=== PATIENT | female | born 1975 | race Caucasian/White ===

== ENCOUNTER 2016-11-04 19:38 | Observation (INO) | payer MEDICAID ==
[2016-11-04] MEDS ORDERED: ASPIRIN 325 MG TABLET PO ONE (19:48)
--- NOTE | 2016-11-04 19:54 | Emergency Department Record ---
History of Present Illness - General Chief Complaint: Chest Pain Stated Complaint: CHEST PAIN Time Seen by Provider: 11/04/16 19:48 Source: Patient Mode of Arrival: Ambulatory Limitations: No limitations - History of Present Illness Initial Comments: 41 yo female presents with left sided chest pain that is coming and going. The first episode occurred this morning. The pain is left sided, sharp, last a few seconds at a time. It is not related to exertion. No shortness of breath. No cough. No sweating. No travel or trips. No edema. No history or HTN, DM, Elevated cholesterol, PE or DVT. No family history of CAD or PE/DVT. She is not a smoker. No HRT or control. MD Complaint: Chest pain Onset/Timin -: Hour(s) Pain Location: Left chest Quality: Aching Consistency: Intermittent Improves With: Nothing Worsens With: Nothing Other Symptoms: Burping Treatments Prior to Arrival: None - Related Data Home Medications Medication Instructions Recorded Confirmed Last Taken Tizanidine HCl [Zanaflex] 4 mg PO ASDIR PRN cap 06/13/15 11/04/16 Unknown Sumatriptan Succinate [Imitrex] 100 mg PO ASDIR PRN 03/02/16 11/04/16 Unknown Bupropion HCl [Wellbutrin Xl] 150 mg PO DAILY 11/04/16 11/04/16 Unknown Allergies Allergy/AdvReac Type Severity Reaction Status Date / Time No Known Drug Allergies Allergy Verified 03/02/16 19:24 Travel Screening - Travel/Exposure Within Last 30 Days Have you traveled within the last 30 days?: No Review of Systems Constitutional: Denies: Chills, Fever, Malaise, Weakness Eyes: Denies: Eye discharge, Eye pain, Photophobia ENT: Denies: Congestion, Throat pain Respiratory: Denies: Cough, Dyspnea, Hemoptysis, Stridor, Wheezes Cardiovascular: Reports: Chest pain. Denies: Arrhythmia, Dyspnea on exertion, Edema, Palpitations, Syncope Endocrine: Denies: Fatigue, Polydipsia, Polyuria Gastrointestinal: Denies: Abdominal pain, Diarrhea, Nausea, Vomiting Genitourinary: Denies: Dysuria, Urgency Musculoskeletal: Denies: Arthralgia, Back pain, Joint swelling, Myalgia, Neck pain Skin: Denies: Bruising, Change in color, Rash Neurological: Denies: Confusion, Headache, Numbness, Paresthesias, Tingling, Tremors, Vertigo, Weakness Psychiatric: Denies: Anxiety Hematological/Lymphatic: Denies: Anemia, Blood Clots, Easy bleeding, Easy bruising, Swollen glands Past Medical History - SOCIAL HISTORY Smoking Status: Never smoker Alcohol Use: None Drug Use: None - RESPIRATORY Hx Respiratory Disorders: No - CARDIOVASCULAR Hx Cardio Disorders: No - NEURO Hx Neuro Disorders: No - GI Hx GI Disorders: Yes Hx Crohn's Disease: Yes Hx Reflux: Yes Comment:: Barretts esophagus - Hx Genitourinary Disorders: No - ENDOCRINE Hx Endocrine Disorders: Yes Hx Diabetes: No Hx Thyroid Disease: Yes (hypo) - MUSCULOSKELETAL Hx Musculoskeletal Disorders: No - PSYCH Hx Psych Problems: No - HEMATOLOGY/ONCOLOGY Hx Hematology/Oncology Disorders: No Family Medical History Any Significant Family History?: No Physical Exam - General General Appearance: Alert, Oriented x3, Cooperative, No acute distress Limitations: No limitations - Head Head exam: Atraumatic, Normocephalic, Normal inspection - Eye Eye exam: Normal appearance, PERRL. negative: Conjunctival injection, Periorbital swelling - ENT ENT exam: Normal exam, Mucous membranes moist, Normal external ear exam, Normal orophraynx, TM's normal bilaterally Ear exam: Normal external inspection. negative: External canal tenderness Nasal Exam: Normal inspection. negative: Discharge, Sinus tenderness Mouth exam: Normal external inspection, Tongue normal Teeth exam: Normal inspection. negative: Dental caries Throat exam: Normal inspection. negative: Tonsillar erythema, Tonsillar exudate - Neck Neck exam: Normal inspection, Full ROM. negative: Tenderness - Respiratory Respiratory exam: Normal lung sounds bilaterally. negative: Accessory muscle use, Chest wall tenderness, Decreased breath sounds, Prolonged expiratory, Rales , Respiratory distress, Rhonchi, Stridor, Wheezes - Cardiovascular Cardiovascular Exam: Regular rate, Normal rhythm, Normal heart sounds Peripheral Pulses: 2+: Radial (R), Radial (L), Dorsalis Pedis (R), Dorsalis Pedis (L) - GI/Abdominal GI/Abdominal exam: Soft. negative: Tenderness - Rectal Rectal exam: Deferred - exam: Deferred - Extremities Extremities exam: Normal inspection, Full ROM, Normal capillary refill. negative: Calf tenderness, Joint swelling, Pedal edema, Tenderness - Back Back exam: Reports: Normal inspection, Full ROM. Denies: Muscle spasm, Rash noted, Tenderness - Neurological Neurological exam: Alert, Normal gait, Oriented X3, Reflexes normal - Psychiatric Psychiatric exam: Normal affect, Normal mood - Skin Skin exam: Dry, Intact, Normal color, Warm Course Vital Signs 11/04/16 19:46 Temperature 98.6 F Pulse Rate [ 78 Pulse Ox Probe] Respiratory 20 Rate Blood Pressure 172/114 [Left Arm] Pulse Ox 99 - Reevaluation(s) Reevaluation #1: The troponin was negative The D-dimer was elevated at 0.7 A CTA of the chest was completed. No acute PE or acute process The pain is atypical but comes and goes so I recommend over night observation with serial enzymes and cardiology consultation 11/04/16 21:39 Procedures - EKG Initial Date: 11/04/16 Time: 19:53 EKG: No Acute Changes, Normal EKG EKG Detail: NSR rate 76, intervals normal, ST normal Medical Decision Making - Lab Data Result diagrams: 11/04/16 19:50 11/04/16 19:50 Disposition Disposition: Admit Clinical Impression: Chest pain Qualifiers: Chest pain type: unspecified Qualified Code(s): R07.9 - Chest pain, unspecified Disposition: Still a Patient at [facility] Decision to Admit: Admit from ER Decision to Admit Date: 11/04/16 Decision to Admit Time: 21:41 Condition: (1) Good Forms: Patient Portal Access Time of Disposition: 21:41
[2016-11-04 19:59] LABS: BASO % 0.4 % (0-6); EOS % 1.3 % (0-6); HEMATOCRIT 42.9 % (35.0-47.0); HEMOGLOBIN 14.2 gm/dl (11.6-16.0); LYMPH % 37.3 % (16-45); MEAN CELL VOLUME 93.3 fl (81-97); MEAN CORPUSCULAR HEMOGLOBIN 30.9 pg (27-33); MEAN CORPUSCULAR HGB CONC 33.1 g/dl (32-36); MEAN PLATELET VOLUME 12.2 fl (7.4-10.4); PLATELET COUNT 190 K/uL (130-400); RED CELL DISTRIBUTION WIDTH 12.8 % (11.5-14.5); WHITE BLOOD COUNT W/O DIFF 7.8 K/uL (4.2-12.2)
[2016-11-04 20:20] LABS: INR 0.95; PROTHROMBIN TIME (PATIENT) 10.7 SECONDS (9.5-12.1)
[2016-11-04 20:23] LABS: D-DIMER 0.71 mg/L FEU (0-0.59)
[2016-11-04 20:49] LABS: ALB/GLOB RATIO 1.5 (1.1-1.8); ALBUMIN 4.5 gm/dL (3.5-5.0); ALKALINE PHOSPHATASE 79 U/L (38-126); ALT/SGPT 21 U/L (9-52); AST/SGOT 21 U/L (14-36); BILIRUBIN,TOTAL 0.62 mg/dL (0.2-1.3); BLOOD UREA NITROGEN 7 mg/dL (7-17); CREATINE PHOSPHOKINASE 39 U/L (30-135); CREATININE 0.9 mg/dL (0.52-1.04); EST GLOMERULAR FILTRATION RATE > 60 ml/min; GLUCOSE,RANDOM 109 mg/dL (70-110); TOTAL PROTEIN 7.6 gm/dL (6.3-8.2)
[2016-11-04 21:02] LABS: CKMB < 1.0 ng/mL (0-4.3); TROPONIN I < 0.012 ng/mL (0.00-0.034)
[2016-11-04] MEDS ORDERED: ACETAMINOPHEN 500 MG TABLET PO PRN (23:09)
--- NOTE | 2016-11-05 07:27 | CT ANGIOGRAM REPORT ---
EXAM: CTA OF THE CHEST HISTORY: ACUTE PLEURITIC LEFT CHEST PAIN, TACHYCARDIA. TECHNIQUE: Contiguous axial images from the thoracic inlet to the upper abdomen were obtained after the uneventful intravenous administration of 85 ml of Omnipaque 350. Sagittal and coronal two dimensional MIP as well as 3D/MIP reformatted images were obtained for better anatomic delineation. Comparison: Chest x-ray 07/14/13. FINDINGS: The lungs are clear. The central airways are patent. No pleural effusion. The heart is not enlarged and there is no pericardial effusion. No coronary artery calcification. No enlarged lymph nodes in the thorax. No evidence of thoracic aortic aneurysm or dissection. The pulmonary arteries are well opacified. No filling defect to suggest pulmonary embolism. The upper abdomen is unremarkable. No lytic or blastic lesion. IMPRESSION: NO ACUTE INTRATHORACIC PROCESS WITH NO PE OR THORACIC AORTIC DISSECTION. JOB NUMBER: [id number] MTDD
[2016-11-05] MEDS ORDERED: ASPIRIN 325 MG TAB ENTERIC-COATED PO SCH (10:00)
--- NOTE | 2016-11-05 11:25 | History & Physical ---
History of Present Illness - Date of Service Date of Service for History & Physical: 11/05/16 - History of Present Illness Admitting Diagnosis: chest pain History of Present Illness: 41 y/o female admitted for chest pain. PMX: Callaway's esophagus (last EGD 1 year ago), hypothyroidism, Crohn's Disease PSX: none Prior to arrival had 12 hours history of intermittent left chest pressure, burning radiating to left neck and burping. [place] like her heart beat was "going diagonal" and could feel it in her diaphragm. Took 8-9 tums over the course of the day with no relief of chest pain/burning. Denies diaphoresis, dizziness, syncope. Does report she has hx Callaway's esophagus, is not currently taking a PPI or H-2 harmony. Admits to a lot of stress in her life. No previous hx of similar symptoms or hospitalizations. No family hx CAD or HTN. Does not take control, does not smoke In the ED the first set of cardiac enzymes were normal, D-Dimer slightly elevated at 0.71, subsequent CTA chest negative for PE. CBC/CMP unremarkable, BP elevated at 172/114. EKG NSR. Admitted for cardiology consult, cardiac enzyme series r/o [place]. 11/05/16- resting in bed comfortably, does complain of left upper chest discomfort with palpation. Denies any recent trauma, fall, URI or cough. 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 Upon discussing potential triggers, such as stress , she became very tearful, withdrawn. Was not willing to discuss. Denied feeling unsafe at home. Denies any further complaint/concern. Tele remains NSR. Awaiting cardiology consult PCP: Dr Telly Esparza [employer] Dr. Rodgers Travel Screening - Travel/Exposure Within Last 30 Days Have you traveled within the last 30 days?: No - Travel/Exposure Within Last Year Have you traveled outside the [place] in the last year?: No - Additonal Travel Details Have you been exposed to anyone with a communicable illness?: No - Travel Symptoms Symptom Screening: None Review of Systems Constitutional: Denies: Chills, Fever, Malaise, Weakness Eyes: Denies: Eye discharge, Eye pain, Photophobia ENT: Denies: Congestion, Throat pain Respiratory: Denies: Cough, Dyspnea, Hemoptysis, Stridor, Wheezes Cardiovascular: Reports: Chest pain. Denies: Arrhythmia, Dyspnea on exertion, Edema, Palpitations, Syncope Endocrine: Denies: Fatigue, Polydipsia, Polyuria Gastrointestinal: Denies: Abdominal pain, Diarrhea, Nausea, Vomiting Genitourinary: Denies: Dysuria, Urgency Musculoskeletal: Denies: Arthralgia, Back pain, Joint swelling, Myalgia, Neck pain Skin: Denies: Bruising, Change in color, Rash Neurological: Denies: Confusion, Headache, Numbness, Paresthesias, Tingling, Tremors, Vertigo, Weakness Psychiatric: Denies: Anxiety Hematological/Lymphatic: Denies: Anemia, Blood Clots, Easy bleeding, Easy bruising, Swollen glands Past Medical History - SOCIAL HISTORY Smoking Status: Never smoker Alcohol Use: Occassional Drug Use: None - RESPIRATORY Hx Respiratory Disorders: No - CARDIOVASCULAR Hx Cardio Disorders: No - NEURO Hx Neuro Disorders: No - GI Hx GI Disorders: Yes Hx Crohn's Disease: Yes (?) Hx Reflux: Yes Comment:: Barretts esophagus? - Hx Genitourinary Disorders: No - ENDOCRINE Hx Endocrine Disorders: Yes Hx Diabetes: No Hx Thyroid Disease: Yes (hypo) - MUSCULOSKELETAL Hx Musculoskeletal Disorders: No - PSYCH Hx Psych Problems: No - HEMATOLOGY/ONCOLOGY Hx Hematology/Oncology Disorders: No Family Medical History Any Significant Family History?: No H&P Meds/Allergies - Allergies Allergies: Allergies Allergy/AdvReac Type Severity Reaction Status Date / Time No Known Drug Allergies Allergy Verified 03/02/16 19:24 - Home Medications Home Medications Medication Instructions Recorded Confirmed Last Taken Tizanidine HCl [Zanaflex] 4 mg PO BID PRN cap 06/13/15 11/05/16 Unknown Sumatriptan Succinate [Imitrex] 100 mg PO ASDIR PRN 03/02/16 11/04/16 Unknown Bupropion HCl [Wellbutrin Xl] 150 mg PO DAILY 11/04/16 11/04/16 Unknown - Active Medications Active Medications: Current Medications Acetaminophen (Tylenol 500mg Tab) 500 mg PO Q6H PRN PRN Reason: HEADACHE Last Admin: 11/04/16 23:15 Dose: 500 mg Aspirin (Ecotrin (Ec)) 325 mg PO DAILY [place] Last Admin: 05/23/17 09:29 Dose: 325 mg Physical Exam - Vital Signs Vital Signs: Vital Signs - Last 24 Hrs Temp Pulse Resp BP Pulse Ox 11/05/16 08:00 98.5 F 72 16 132/77 97 11/05/16 04:35 98.0 F 63 18 119/70 96 11/05/16 00:35 97.6 F 65 18 125/73 98 11/04/16 22:35 98.4 F 67 18 126/78 97 - General General Appearance: Alert, Oriented x3, Cooperative, No acute distress Limitations: No limitations - Head Head exam: Atraumatic, Normocephalic, Normal inspection - Eye Eye exam: Normal appearance, PERRL. negative: Conjunctival injection, Periorbital swelling - ENT ENT exam: Normal exam, Mucous membranes moist, Normal external ear exam, Normal orophraynx, TM's normal bilaterally Ear exam: Normal external inspection. negative: External canal tenderness Nasal Exam: Normal inspection. negative: Discharge, Sinus tenderness Mouth exam: Normal external inspection, Tongue normal Teeth exam: Normal inspection. negative: Dental caries Throat exam: Normal inspection. negative: Tonsillar erythema, Tonsillar exudate - Neck Neck exam: Normal inspection, Full ROM. negative: Tenderness - Respiratory Respiratory exam: Normal lung sounds bilaterally. negative: Accessory muscle use, Chest wall tenderness, Decreased breath sounds, Prolonged expiratory, Rales , Respiratory distress, Rhonchi, Stridor, Wheezes - Cardiovascular Cardiovascular Exam: Regular rate, Normal rhythm, Normal heart sounds, Other ( tenderness upon palpation left upper chest, left sternal border. Not reproducible with cough) Peripheral Pulses: 2+: Radial (R), Radial (L), Dorsalis Pedis (R), Dorsalis Pedis (L) - GI/Abdominal GI/Abdominal exam: Soft. negative: Tenderness - Rectal Rectal exam: Deferred - exam: Deferred - Extremities Extremities exam: Normal inspection, Full ROM, Normal capillary refill. negative: Calf tenderness, Joint swelling, Pedal edema, Tenderness - Back Back exam: Reports: Normal inspection, Full ROM. Denies: Muscle spasm, Rash noted, Tenderness - Neurological Neurological exam: Alert, Normal gait, Oriented X3, Reflexes normal - Psychiatric Psychiatric exam: Normal affect, Normal mood - Skin Skin exam: Dry, Intact, Normal color, Warm Results - Labs Result Diagrams: 11/04/16 19:50 11/04/16 19:50 Labs Last 24 Hours: Laboratory Results - last 24 hr 11/05/16 11/05/16 04:00 04:00 CK-MB (CK-2) < 1.0 Troponin I < 0.012 VTE H&P Assessment - Risk for VTE Risk for VTE: Yes Risk Level: Low Risk Assessment Date: 11/05/16 Risk Assessment Time: 11:31 VTE Orders Placed or Will Be Placed: Yes AMI H&P Plan - EKG Initial Date: 11/04/16 Time: 19:53 EKG: No Acute Changes, Normal EKG EKG Detail: NSR rate 76, intervals normal, ST normal Plan - Detailed Diagnosis and Plan (1) Chest pain Current Visit: Yes Status: Acute Qualifiers: Chest pain type: unspecified Qualified Code(s): R07.9 - Chest pain, unspecified Base Code: R07.9 - CHEST PAIN, UNSPECIFIED Comment: 11/05/16- 41 y/o admitted for 12 hour hx chest pain, burning, burping unrelieved by Tums. No previous cardiac hx, no family hx CAD, HTN. Cardiac enzymes x 3 (first 2 sets normal), D -dimer in ED slightly elevated , CTA chest negative for PE. No smoker, no oral /control. BP in ED elevated now down < 140/90 since transfer to the floor. Hx of Callaway's esophagus with not current PPI or H-2 harmony with addition of reported increase in stress at home probable etiology of chest pain - await cardiology consult - continue Tele (has remained NSR) - ASA 325mg QD - if cleared by cardiology and last set of cardiac enzymes negative may discharge home - recommend continue protonix at home - follow up GI as outpatient - follow up PCP 1-2 weeks - consider behavior health for stress management (2) DVT prophylaxis Current Visit: Yes Status: Acute Base Code: [id number] - Comment: 11/05/16- low risk, non-smoker, no OBC, on ASA 325mg, nursing to encourage frequent ambulation (3) Full code status Current Visit: Yes Status: Acute Base Code: Z78.9 - OTHER SPECIFIED HEALTH STATUS Comment: 11/05/16-will remain full code during this hospitalization
[2016-11-05] MEDS ORDERED: PANTOPRAZOLE SODIUM 40 MG TABLET PO SCH (11:30)
--- NOTE | 2016-11-05 18:23 | Discharge Summary ---
Providers Discharge Summary Date: 11/05/16 Date of admission: 11/04/16 22:13 Expected Date of Discharge: 11/05/16 Attending physician: KERA CORRAL Primary care physician: MAR YALICE SON D.O. Physical Exam - Vital Signs Vital Signs: Vital Signs - Last 24 Hrs Temp Pulse Resp BP Pulse Ox 11/05/16 16:00 98.7 F 65 16 130/80 95 11/05/16 12:00 99.0 F 64 16 112/69 96 11/05/16 09:00 72 16 11/05/16 08:00 98.5 F 72 16 132/77 97 11/05/16 04:35 98.0 F 63 18 119/70 96 11/05/16 00:35 97.6 F 65 18 125/73 98 11/04/16 22:35 98.4 F 67 18 126/78 97 - General General Appearance: Alert, Oriented x3, Cooperative, No acute distress Limitations: No limitations - Head Head exam: Atraumatic, Normocephalic, Normal inspection - Eye Eye exam: Normal appearance, PERRL. negative: Conjunctival injection, Periorbital swelling - ENT ENT exam: Normal exam, Mucous membranes moist, Normal external ear exam, Normal orophraynx, TM's normal bilaterally Ear exam: Normal external inspection. negative: External canal tenderness Nasal Exam: Normal inspection. negative: Discharge, Sinus tenderness Mouth exam: Normal external inspection, Tongue normal Teeth exam: Normal inspection. negative: Dental caries Throat exam: Normal inspection. negative: Tonsillar erythema, Tonsillar exudate - Neck Neck exam: Normal inspection, Full ROM. negative: Tenderness - Respiratory Respiratory exam: Normal lung sounds bilaterally. negative: Accessory muscle use, Chest wall tenderness, Decreased breath sounds, Prolonged expiratory, Rales , Respiratory distress, Rhonchi, Stridor, Wheezes - Cardiovascular Cardiovascular Exam: Regular rate, Normal rhythm, Normal heart sounds, Other ( tenderness upon palpation left upper chest, left sternal border. Not reproducible with cough) Peripheral Pulses: 2+: Radial (R), Radial (L), Dorsalis Pedis (R), Dorsalis Pedis (L) - GI/Abdominal GI/Abdominal exam: Soft. negative: Tenderness - Rectal Rectal exam: Deferred - exam: Deferred - Extremities Extremities exam: Normal inspection, Full ROM, Normal capillary refill. negative: Calf tenderness, Joint swelling, Pedal edema, Tenderness - Back Back exam: Reports: Normal inspection, Full ROM. Denies: Muscle spasm, Rash noted, Tenderness - Neurological Neurological exam: Alert, Normal gait, Oriented X3, Reflexes normal - Psychiatric Psychiatric exam: Normal affect, Normal mood - Skin Skin exam: Dry, Intact, Normal color, Warm Hospitalization - Hospitalization Admission Diagnosis: chest pain - Problem List/Discharge Diagnosis (1) Chest pain Current Visit: Yes Status: Acute Discharge Diagnosis: Chest pain type: unspecified Qualified Code(s): R07.9 - Chest pain, unspecified Base Code: R07.9 - CHEST PAIN, UNSPECIFIED Comment: 11/05/16- 41 y/o admitted for 12 hour hx chest pain, burning, burping unrelieved by Tums. No previous cardiac hx, no family hx CAD, HTN. Cardiac enzymes x 3 (first 2 sets normal), D -dimer in ED slightly elevated , CTA chest negative for PE. No smoker, no oral /control. BP in ED elevated now down < 140/90 since transfer to the floor. Hx of Callaway's esophagus with not current PPI or H-2 harmony with addition of reported increase in stress at home probable etiology of chest pain - Cleared by cardiology, Dr Mik Rodgers, for discharge, no further testing required. Advised to make appt with him should her symptoms return - cardiac enzymes x 3 negative - recommend continue protonix at home - follow up GI as outpatient - follow up PCP 1-2 weeks - consider behavior health for stress management (2) DVT prophylaxis Current Visit: Yes Status: Acute Base Code: [id number] - Comment: 11/05/16- low risk, non-smoker, no OBC, on ASA 325mg, nursing to encourage frequent ambulation (3) Full code status Current Visit: Yes Status: Acute Base Code: Z78.9 - OTHER SPECIFIED HEALTH STATUS Comment: 11/05/16-will remain full code during this hospitalization - Hospitalization Course Disposition: Home, Self-Care Hospital Course: 1 y/o female admitted for chest pain. PMX: Callaway's esophagus (last EGD 1 year ago), hypothyroidism, Crohn's Disease PSX: none Prior to arrival had 12 hours history of intermittent left chest pressure, burning radiating to left neck and burping. [place] like her heart beat was "going diagonal" and could feel it in her diaphragm. Took 8-9 tums over the course of the day with no relief of chest pain/burning. Denies diaphoresis, dizziness, syncope. Does report she has hx Callaway's esophagus, is not currently taking a PPI or H-2 harmony. Admits to a lot of stress in her life. No previous hx of similar symptoms or hospitalizations. No family hx CAD or HTN. Does not take control, does not smoke In the ED the first set of cardiac enzymes were normal, D-Dimer slightly elevated at 0.71, subsequent CTA chest negative for PE. CBC/CMP unremarkable, BP elevated at 172/114. EKG NSR. Admitted for cardiology consult, cardiac enzyme series r/o [place]. 11/05/16- resting in bed comfortably, does complain of left upper chest discomfort with palpation. Denies any recent trauma, fall, URI or cough. 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 Upon discussing potential triggers, such as stress , she became very tearful, withdrawn. Was not willing to discuss. Denied feeling unsafe at home. Denies any further complaint/concern. Tele remains NSR. Awaiting cardiology consult PCP: Dr Telly Son Tar Chaser Dr. Rodgers Condition at Discharge: (1) Good Discharge Medications - Discharge Medications Prescriptions: Pantoprazole Sodium [Protonix] 40 mg PO NOW #30 tab Home Medications: Ambulatory Orders Tizanidine HCl [Zanaflex] 4 mg PO BID PRN cap 06/13/15 [Last Taken Unknown] Sumatriptan Succinate [Imitrex] 100 mg PO ASDIR PRN 03/02/16 [Last Taken Unknown ] Bupropion HCl [Wellbutrin Xl] 150 mg PO DAILY 11/04/16 [Last Taken Unknown] Pantoprazole Sodium [Protonix] 40 mg PO NOW #30 tab 11/05/16 [Last Taken Unknown ] Discharge Plan - Discharge Instructions Activity at Discharge: Increase Activity as Tolerated Diet at Discharge: Advance to Usual Diet Additional Instructions: follow up PCP 1-2 weeks follow up with skid worker 1-2 weeks continue Protonix until follow up with skid worker
--- NOTE | 2016-11-06 16:01 | Medical Records Consult ---
DATE OF CONSULTATION: 11/05/2016. REASON FOR CONSULTATION: Chest pain. REFERRING PHYSICIAN: Sarbjit Simental MD. HISTORY OF PRESENT ILLNESS: The patient, who is a healthy young lady and is a medical office coordinator at [employer], presented with complaints of left-sided chest pain that started while she was at work. The patient described the chest pain as episodic, about 3-4/10 in severity, and was lasting about 30-45 second intervals, and was on and off. It had no relationship with exertion, was not associated with shortness of breath, palpitations, or diaphoresis. The patient got concerned and came to the emergency department. She does complain of a sore spot and a reproducible area. ALLERGIES: No known drug allergies. HOME MEDICATIONS: 1. Zanaflex 4 mg p.o. p.r.n. 2. Wellbutrin 150 mg p.o. daily. 3. Imitrex 100 mg p.o. p.r.n. FAMILY HISTORY: Patient does not know about her family history. SOCIAL HISTORY: Patient is . Lives with her . Has 3 kids. She is fairly active, however, does not have any structured exercise program, and no history of cigarette smoking or illicit drug use. REVIEW OF SYSTEMS: Patient denies any fevers or chills. She did have a pneumonia about 2 months ago, for which she used 3 different courses of antibiotics. She denies any bleeding disorders. PHYSICAL EXAMINATION: VITAL SIGNS: Temperature 98.6 degrees Fahrenheit. Pulse rate 78 beats per minute. Respiratory rate 20. Blood pressure 117/70 mmHg. GENERAL: The patient is a 41-year-old female sitting up in bed, not in any apparent distress. Alert, oriented x 3. HEENT: Normocephalic, atraumatic. Pupils are equal, round, reactive to light. Extraocular muscles are intact. NECK: Supple. CARDIOVASCULAR: Normal S1 and S2. There is no JVD. No pedal edema. RESPIRATORY: Lungs are clear to auscultation bilaterally. ABDOMEN: Soft and nontender. NEUROLOGIC: Nonfocal. LABORATORY DATA: Shows her cardiac biomarkers to be within normal limits. Her white count is 7.8, hemoglobin 14.2, hematocrit 42.9, platelet count 190. Sodium is 138, potassium 3.7, chloride 102, CO2 27, BUN 7, creatinine 0.9, blood glucose 109. The patient's ECG shows a sinus rhythm with normal axis, a rate of 61 beats per minute, OK interval of 166 msec, QRS duration of 100 msec, and QTc of 443 msec. IMPRESSION: Chest pain. The patient has musculoskeletal chest pain. The EKG and cardiac biomarkers are within normal limits, and her symptoms are fairly characteristic for musculoskeletal pain, as it is reproducible and has no relationship with exertion. The patient does not have any significant risk factors for cardiovascular disease either. I would not recommend doing any further cardiac workup at this point in time, and she may be discharged home. If she continues to have the pain or the pain gets worse, then she make a followup appointment with us as outpatient for further evaluation. Reassurance was provided. Thank you very much. Clarita Rodgers MD MTDDavid
== END 2016-11-05 18:40 | disposition home or self-care (01) ==
LOC: ER 19:38 → MEDSURG 22:13
PROVIDERS: ADMIT Family Medicine; ATTEND Family Medicine
DX: R07.9 Chest pain, unspecified (principal); E03.9 Hypothyroidism, unspecified; K50.90 Crohn's disease, unspecified, without complications; K22.70 Barrett's esophagus without dysplasia; Z78.9 Other specified health status
CPT/HCPCS: 93041; 99285 ×2; 82550; 85025; 85730; 85610; 82553 ×2; 84484 ×2; 80053; 81025; 85379; 71275; 93005 ×2; 93010; G0378 ×2; Q9967; 99220

== ENCOUNTER 2017-09-01 19:13 | Emergency (ER) | payer BC, MEDICAID ==
[2017-09-01] MEDS ORDERED: 0.9 % SODIUM CHLORIDE 1,000 ML BAG IV ONE (19:40)
--- NOTE | 2017-09-01 19:41 | Emergency Department Record ---
History of Present Illness - General Chief Complaint: Wheezing Stated Complaint: WHEEZING,SHERWOOD WHILE BREATHING,HAND NUMBNESS Time Seen by Provider: 09/01/17 19:26 Source: Patient Mode of Arrival: Ambulatory Limitations: No limitations - History of Present Illness Initial Comments: 41 yo male presents with multiple concerns. She has felt fatigue and tired since last . She feels like she has no energy. She feels lightheaded and dizzy at times. She felt like she was wheezing this weekend. She has had a dry cough. No fevers or chills. No rash. No edema. No nausea, vomiting, diarrhea, or chest pain. No swollen glands. She has MS. She saw her neurologist last Friday and felt normal. No new medications were added or stopped. No syncope. No headaches. Her PCP is Dr Simons in [place]. Her neurologist is Dr Rocha in [place]. She had some mild new changes on her MRI in June compared to the previous. She has had MS symptoms for 6 years. She has had chronic numbness and tingling and periodic weakness. No current double vision. This has occurred in the past. MD Complaint: Shortness of breath -: Days(s) Severity: Mild Context: None known Associated Symptoms: Dry cough - Related Data Current Asthma Therapy: None Home Medications Medication Instructions Recorded Confirmed Last Taken Escitalopram Oxalate [Lexapro] 20 mg PO DAILY 09/01/17 09/01/17 Unknown Pregabalin [Lyrica] 75 mg PO BID 09/01/17 09/01/17 Unknown Topiramate 25Mg Tablet [Topiramate] 25 mg PO DAILY 09/01/17 09/01/17 Unknown Previous Rx's Medication Instructions Recorded Pantoprazole Sodium [Protonix] 40 mg PO NOW #30 tab 11/05/16 Allergies Allergy/AdvReac Type Severity Reaction Status Date / Time No Known Drug Allergies Allergy Verified 03/02/16 19:24 Review of Systems Constitutional: Reports: Malaise, Weakness (generalized). Denies: Chills, Fever Eyes: Reports: Other (transient blurry last week, resovled then). Denies: Eye discharge, Eye pain, Photophobia, Vision change ENT: Denies: Congestion, Throat pain Respiratory: Reports: Cough, Dyspnea, Wheezes. Denies: Hemoptysis, Stridor Cardiovascular: Denies: Arrhythmia, Chest pain, Dyspnea on exertion, Edema, Palpitations, Syncope Endocrine: Denies: Fatigue Gastrointestinal: Denies: Abdominal pain, Constipation, Diarrhea, Hematochezia, Melena, Nausea, Vomiting Genitourinary: Denies: Dysuria, Frequency, Hematuria, Urgency Musculoskeletal: Denies: Arthralgia, Back pain, Joint swelling, Myalgia Skin: Denies: Bruising, Change in color, Rash Neurological: Reports: Numbness (chronic unchanged), Paresthesias (chronic unchanged), Tingling (chronic), Vertigo, Weakness, Other (trouble concentrating at times). Denies: Abnormal gait, Confusion, Headache, Seizure, Tremors Psychiatric: Reports: Anxiety Hematological/Lymphatic: Denies: Blood Clots, Easy bleeding, Easy bruising, Swollen glands Past Medical History - SOCIAL HISTORY Smoking Status: Never smoker Drug Use: None - RESPIRATORY Hx Respiratory Disorders: No - CARDIOVASCULAR Hx Cardio Disorders: No - NEURO Hx Neuro Disorders: No - GI Hx GI Disorders: Yes Hx Crohn's Disease: Yes (?) Hx Reflux: Yes Comment:: Barretts esophagus? - Hx Genitourinary Disorders: No - ENDOCRINE Hx Endocrine Disorders: Yes Hx Diabetes: No Hx Thyroid Disease: Yes (hypo) - MUSCULOSKELETAL Hx Musculoskeletal Disorders: No - PSYCH Hx Psych Problems: No - HEMATOLOGY/ONCOLOGY Hx Hematology/Oncology Disorders: No Physical Exam - General General Appearance: Alert, Oriented x3, Cooperative, No acute distress, Other ( Well appearing, no distress) Limitations: No limitations - Head Head exam: Normal inspection - Eye Eye exam: Normal appearance, PERRL, EOMI. negative: Conjunctival injection, Nystagmus, Periorbital swelling, Scleral icterus - ENT ENT exam: Normal exam, Mucous membranes moist, Normal orophraynx. negative: Mucous membranes dry Ear exam: Normal external inspection Nasal Exam: Normal inspection Mouth exam: Normal external inspection Teeth exam: Normal inspection Throat exam: Normal inspection - Neck Neck exam: Normal inspection, Full ROM. negative: Lymphadenopathy, Tenderness, Thyromegaly - Respiratory Respiratory exam: Normal lung sounds bilaterally. negative: Accessory muscle use, Chest wall tenderness, Decreased breath sounds, Prolonged expiratory, Rales , Respiratory distress, Rhonchi, Stridor, Wheezes - Cardiovascular Cardiovascular Exam: Regular rate, Normal rhythm, Normal heart sounds Peripheral Pulses: 2+: Radial (R), Radial (L) - GI/Abdominal GI/Abdominal exam: Soft. negative: Guarding, Rebound, Tenderness - Rectal Rectal exam: Deferred - exam: Deferred - Extremities Extremities exam: Normal inspection, Full ROM, Normal capillary refill. negative: Calf tenderness, Pedal edema, Tenderness - Back Back exam: Reports: Normal inspection. Denies: CVA tenderness (R), CVA tenderness (L) - Neurological Neurological exam: Alert, CN II-XII intact, Normal gait, Oriented X3, Other ( steady gait, unassisted, no double vision in all quadrants). negative: Abnormal gait, Altered, Motor sensory deficit - Psychiatric Psychiatric exam: Anxious (mild, becomes tearful). negative: Agitated - Skin Skin exam: Dry, Intact, Normal color, Warm. negative: Abrasion, Cyanosis, Diaphoretic, Erythema, Mottled, Pallor, Petechiae, Rash, Urticaria, Vesicles Course - Reevaluation(s) Reevaluation #1: The vitals were reviewed No acute changes. No hypoxia. No tachycardia 09/01/17 19:49 09/01/17 20:02 EKG NSR rate 62, intervals normal, axis normal, ST normal, No changes from the prior 11/05/16 09/01/17 20:03 Orthostatic vitals reviewed. No acute changes. 09/01/17 20:31 No acute changes on the CBC or CMP The magnesium is normal The UCG is negative The US with concentration, trace LE, few bacteria, but with epithelial and no WBC. Consistent with contamination. 09/01/17 20:34 The CXR was reviewed by me. No acute process. Normal heart size and clear lung rojas. I discussed the results with the patient. She has several symptoms with very reassuring exam, vitals, labs I encourage close follow up and imporoved hydration with the concentrated UA. 09/01/17 20:43 The TSH is normal at 3.9 Medical Decision Making - Lab Data Result diagrams: 09/01/17 20:00 09/01/17 20:00 Disposition Disposition: Discharge Clinical Impression: Generalized weakness Disposition: Home, Self-Care Condition: (1) Good Instructions: Weakness (ED) Additional Instructions: Call your doctors tomorrow for very close follow up of this ER visit Your urine test indicated possible dehydration Stay well hydrated Be seen for a recheck immediately if worse, any new symptoms or concerns Forms: Patient Portal Access Time of Disposition: 20:34 Quality - Quality Measures Quality Measures: N/A - Blood Pressure Screening Does Patient Have Any of the Following: No Blood Pressure Classification: Pre-Hypertensive BP Reading Systolic Measurement: 130 Diastolic Measurement: 83 Screening for High Blood Pressure: < Pre-Hypertensive BP, F/U Documented > [ G8950] Pre-Hypertensive Follow-up Interventions: Referral to alternative/primary care provider.
[2017-09-01 20:08] LABS: BASO % 0.3 % (0-6); EOS % 1.5 % (0-6); GRAN % 54.3 % (47-80); HEMATOCRIT 39.5 % (35.0-47.0); HEMOGLOBIN 13.8 gm/dl (11.6-16.0); MEAN CELL VOLUME 92.9 fl (81-97); MEAN CORPUSCULAR HEMOGLOBIN 32.5 pg (27-33); MEAN CORPUSCULAR HGB CONC 34.9 g/dl (32-36); MEAN PLATELET VOLUME 12.9 fl (7.4-10.4); MONO % 6.9 % (0-9); PLATELET COUNT 166 K/uL (130-400); RED BLOOD COUNT 4.25 M/uL (3.80-5.40); RED CELL DISTRIBUTION WIDTH 13.4 % (11.5-14.5); URINE APPEARANCE CLEAR; URINE BILIRUBIN NEGATIVE (NEGATIVE); URINE BLOOD NEGATIVE (NEGATIVE); URINE COLOR YELLOW; URINE GLUCOSE (UA) NEGATIVE (NEGATIVE); URINE KETONE TRACE (NEGATIVE); URINE LEUKOCYTE ESTERASE TRACE (NEGATIVE); URINE NITRITE NEGATIVE (NEGATIVE); URINE PROTEIN NEGATIVE (NEGATIVE); WHITE BLOOD COUNT W/O DIFF 6.1 K/uL (4.2-12.2)
[2017-09-01 20:14] LABS: HCG,QUALITATIVE URINE NEGATIVE (NEGATIVE); URINE BACTERIA FEW; URINE EPITHELIAL CELLS 21 - 35 (FEW); URINE RBC 0 - 2 (NONE SEEN); URINE WBC 0 - 2 (0-2/hpf)
[2017-09-01 20:21] LABS: BLOOD UREA NITROGEN 9 mg/dL (6-20); EST GLOMERULAR FILTRATION RATE > 60 mL/min
[2017-09-01 20:22] LABS: TOTAL PROTEIN 7.5 g/dL (6.6-8.7)
[2017-09-01 20:24] LABS: GLUCOSE,RANDOM 91 mg/dL (74-109)
[2017-09-01 20:27] LABS: ALB/GLOB RATIO 1.5 (1.1-1.8); ALBUMIN 4.5 g/dL (4.0-5.0); ALKALINE PHOSPHATASE 67 U/L (35-104); ALT/SGPT 13 U/L (<33); AST/SGOT 14 U/L (10.0-35.0)
[2017-09-01 20:38] LABS: THYROID STIMULATING HORMONE 3.96 uIU/mL (0.270-4.20)
--- NOTE | 2017-09-02 13:30 | RADIOLOGY REPORT ---
EXAM: CHEST, TWO VIEWS HISTORY: SHORTNESS OF BREATH. TECHNIQUE: PA and lateral views of the chest were obtained. Comparison: Two view chest 07/20/13. FINDINGS: The heart size is within normal limits. No definite acute infiltrate seen. No pleural effusion or pneumothorax evident. IMPRESSION: THE CHEST APPEARS NEGATIVE WITH NO DEFINITE ACUTE INFILTRATE SEEN. JOB NUMBER: [id number] MTDD
== END 2017-09-01 21:11 | disposition home or self-care (01) ==
LOC: ER 19:13
DX: R53.1 Weakness (principal); R42 Dizziness and giddiness; R06.2 Wheezing; R20.0 Anesthesia of skin; R53.83 Other fatigue; R06.02 Shortness of breath
CPT/HCPCS: 71046; 80053; 81001; 81025; 83735; 84443; 85025; 93005; 93010; 96360; 99284; J7030

== ENCOUNTER 2018-08-09 18:37 | Emergency (ER) | payer BC ==
--- NOTE | 2018-08-09 18:46 | Emergency Department Record ---
History of Present Illness - General Stated Complaint: ABD PAIN Time Seen by Provider: 08/09/18 18:39 Source: Patient Mode of Arrival: Ambulatory Limitations: No limitations - History of Present Illness Initial comments: 42 yo female presents to ED for evaluation of pain to the right mid-abdomen x 7- 10 days. Patient is concerned about a possible hernia in [facility] area. Patient denies fevers, chills, nausea, vomiting, or urinary symptoms. Patient reports previous cholecystectomy and appendectomy, denies health problems at her baseline. Patient reports "I am just concerned that I may have a hernia". Onset/Timin -: Week(s) Location: Abdomen Radiation: Non-Radiating Consistency: Constant Worsens with: Other (palpation) Associated Symptoms: Denies other symptoms Treatments Prior to Arrival: None - Minto Coma Scale Eye Response: (4) Open spontaneously Motor Response: (6) Obeys commands Verbal Response: (5) Oriented Garry Total: 15 - Related Data Previous Rx's Medication Instructions Recorded Pantoprazole Sodium [Protonix] 40 mg PO NOW #30 tab 11/05/16 Allergies Allergy/AdvReac Type Severity Reaction Status Date / Time No Known Drug Allergies Allergy Verified 03/02/16 19:24 Review of Systems Constitutional: Denies: Chills, Fever, Malaise, Night sweats Eyes: Denies: Eye discharge, Eye pain ENT: Denies: Congestion, Ear pain, Epistaxis Respiratory: Denies: Cough, Dyspnea Cardiovascular: Denies: Chest pain, Dyspnea on exertion Endocrine: Denies: Fatigue, Heat or cold intolerance Gastrointestinal: Reports: Abdominal pain. Denies: Nausea, Vomiting Genitourinary: Denies: Incontinence, Retention Musculoskeletal: Denies: Arthralgia, Back pain Skin: Denies: Bruising, Change in color Neurological: Denies: Abnormal gait, Confusion, Headache Psychiatric: Denies: Anxiety Hematological/Lymphatic: Denies: Anemia, Blood Clots Past Medical History - SOCIAL HISTORY Smoking Status: Never smoker Drug Use: None - RESPIRATORY Hx Respiratory Disorders: No - CARDIOVASCULAR Hx Cardio Disorders: No - NEURO Hx Neuro Disorders: No - GI Hx GI Disorders: Yes Hx Crohn's Disease: Yes (?) Hx Reflux: Yes Comment:: Barretts esophagus? - Hx Genitourinary Disorders: No - ENDOCRINE Hx Endocrine Disorders: Yes Hx Diabetes: No Hx Thyroid Disease: Yes (hypo) - MUSCULOSKELETAL Hx Musculoskeletal Disorders: No - PSYCH Hx Psych Problems: No - HEMATOLOGY/ONCOLOGY Hx Hematology/Oncology Disorders: No Physical Exam - General General Appearance: Alert, Oriented x3, Cooperative, No acute distress, Other ( Ambulates, sits, and lies supine without pain on examination) Limitations: No limitations - Head Head exam: Atraumatic, Normocephalic, Normal inspection Head exam detail: negative: Abrasion, Contusion, Aldana's sign, General tenderness, Hematoma, Laceration - Eye Eye exam: Normal appearance. negative: Conjunctival injection, Periorbital swelling, Periorbital tenderness, Scleral icterus - ENT Ear exam: negative: Auricular hematoma, Auricular trauma Nasal Exam: negative: Active bleeding, Discharge, Dried blood Mouth exam: negative: Drooling, Laceration, Tongue elevation - Neck Neck exam: Normal inspection. negative: Meningismus, Tenderness - Respiratory Respiratory exam: Normal lung sounds bilaterally. negative: Respiratory distress, Rhonchi, Stridor, Wheezes - Cardiovascular Cardiovascular Exam: Regular rate, Normal rhythm, Normal heart sounds - GI/Abdominal GI/Abdominal exam: Soft, Tenderness (Small area of tender subcutaenosu nodules are present to the mid-abdomen, no fascial defect, bowel, or hernia is identified on examination. Abdominal examination overall is non-tender.). negative: Pulsatile mass, Rebound, Rigid - Rectal Rectal exam: Deferred - exam: Deferred - Extremities Extremities exam: Normal inspection. negative: Pedal edema, Tenderness - Back Back exam: Denies: CVA tenderness (R), CVA tenderness (L) - Neurological Neurological exam: Alert, Normal gait, Oriented X3 - Psychiatric Psychiatric exam: Normal affect, Normal mood - Skin Skin exam: negative: Abrasion Type of lesion: negative: abrasion Course - Reevaluation(s) Reevaluation #1: 08/09/18 18:50 CT Abdomen from 03/02/16 was reviewed, no hernia present on examination. Patient's examination demonstrates several small subcutaenous nodules present that are freely moveable on examination, no bowel is palpated on examination, and no fascial defect is identified on examination. I discussed physical examination findings with the patient, offered laboratory studies as well as CT imaging for confirmation, patient declined on examination. Patient appears stable for discharge with instructions to follow-up with her PCP for re-evaluation in 3-5 days as directed. Disposition Disposition: Discharge Clinical Impression: Subcutaneous nodule Disposition: Home, Self-Care Condition: (2) Stable Instructions: [place] (ED) Additional Instructions: Return to ED if your symptoms worsen or if you have any concerns. Follow-up with your family doctor in 3-5 days as directed. Forms: Patient Portal Access Time of Disposition: 18:45 Quality - Quality Measures Quality Measures: N/A - Blood Pressure Screening Does Patient Have Any of the Following: No Blood Pressure Classification: Pre-Hypertensive BP Reading Systolic Measurement: 121 Diastolic Measurement: 89 Screening for High Blood Pressure: < Pre-Hypertensive BP, F/U Documented > [ G8950] Pre-Hypertensive Follow-up Interventions: Referral to alternative/primary care provider.
== END 2018-08-09 19:00 | disposition home or self-care (01) ==
LOC: ER 18:37
DX: R22.2 Localized swelling, mass and lump, trunk (principal); R10.11 Right upper quadrant pain
CPT/HCPCS: 99283

== ENCOUNTER 2018-08-14 18:06 | Emergency (ER) | payer BC ==
[2018-08-14] MEDS ORDERED: 0.9 % SODIUM CHLORIDE 1000ML 1,000 ML IV SCH (18:15)
--- NOTE | 2018-08-14 18:21 | Emergency Department Record ---
History of Present Illness - General Chief Complaint: Abdominal Pain Stated Complaint: ABD PAIN Time Seen by Provider: 08/14/18 18:07 Source: Patient Mode of Arrival: Ambulatory Limitations: No limitations - History of Present Illness Initial Comments: 42 yo female returns to ED for evaluation of continued mild right mid-abdominal pain for the past 2 weeks. Patient was seen and evaluated 5 days ago, determined clinically not to have a hernia in the mid-abdomen. Patient underwent US of the abdomen yesterday, patient's PCP told her that he was concerned about possible bowel obstruction. Patient denies vomiting, reports that her last BM was 2 days ago. Patient reports previous doug and appy. Patient denies fevers, chills, or recent illness. MD Complaint: Abdominal pain Onset/Timin -: Week(s) Migration to: No migration Severity: Moderate Consistency: Constant Improves With: Nothing Worsens With: Nothing Associated Symptoms: Nausea - Related Data Patient : No Previous Rx's Medication Instructions Recorded Pantoprazole Sodium [Protonix] 40 mg PO NOW #30 tab 11/05/16 Allergies Allergy/AdvReac Type Severity Reaction Status Date / Time No Known Drug Allergies Allergy Verified 03/02/16 19:24 Review of Systems Constitutional: Denies: Chills, Fever, Malaise, Night sweats Eyes: Denies: Eye discharge, Eye pain ENT: Denies: Congestion, Ear pain, Epistaxis Respiratory: Denies: Cough, Dyspnea Cardiovascular: Denies: Chest pain, Dyspnea on exertion Endocrine: Denies: Fatigue, Heat or cold intolerance Gastrointestinal: Reports: Abdominal pain, Nausea. Denies: Vomiting Genitourinary: Denies: Incontinence, Retention Musculoskeletal: Denies: Arthralgia, Back pain Skin: Denies: Bruising, Change in color Neurological: Denies: Abnormal gait, Confusion, Headache, Tingling, Tremors Psychiatric: Denies: Anxiety Hematological/Lymphatic: Denies: Anemia, Blood Clots Past Medical History - SOCIAL HISTORY Smoking Status: Never smoker Drug Use: None - RESPIRATORY Hx Respiratory Disorders: No - CARDIOVASCULAR Hx Cardio Disorders: No - NEURO Hx Neuro Disorders: No - GI Hx GI Disorders: Yes Hx Crohn's Disease: Yes (?) Hx Reflux: Yes Comment:: Barretts esophagus? - Hx Genitourinary Disorders: No - ENDOCRINE Hx Endocrine Disorders: Yes Hx Diabetes: No Hx Thyroid Disease: Yes (hypo) - MUSCULOSKELETAL Hx Musculoskeletal Disorders: No - PSYCH Hx Psych Problems: No - HEMATOLOGY/ONCOLOGY Hx Hematology/Oncology Disorders: No Physical Exam - General General Appearance: Alert, Oriented x3, Cooperative, No acute distress, Other ( Patient is well appearing on exmaination, no rebound, guarding, or peritoneal signs on examination) Limitations: No limitations - Head Head exam: Atraumatic, Normocephalic, Normal inspection Head exam detail: negative: Abrasion, Contusion, Aldana's sign, General tenderness, Hematoma, Laceration - Eye Eye exam: Normal appearance. negative: Conjunctival injection, Periorbital swelling, Periorbital tenderness, Scleral icterus - ENT Ear exam: negative: Auricular hematoma, Auricular trauma Nasal Exam: negative: Active bleeding, Discharge, Dried blood, Foreign body Mouth exam: negative: Drooling, Laceration, Muffled voice, Tongue elevation - Neck Neck exam: Normal inspection. negative: Meningismus, Tenderness - Respiratory Respiratory exam: Normal lung sounds bilaterally. negative: Respiratory distress, Rhonchi, Stridor, Wheezes - Cardiovascular Cardiovascular Exam: Regular rate, Normal rhythm, Normal heart sounds - GI/Abdominal GI/Abdominal exam: Soft. negative: Distended, Organomegaly, Rebound, Rigid, Tenderness - Rectal Rectal exam: Deferred - exam: Deferred - Extremities Extremities exam: Normal inspection. negative: Pedal edema, Tenderness - Back Back exam: Denies: CVA tenderness (R), CVA tenderness (L) - Neurological Neurological exam: Alert, Normal gait, Oriented X3 - Psychiatric Psychiatric exam: Normal affect, Normal mood - Skin Skin exam: Normal color. negative: Abrasion Type of lesion: negative: abrasion Course - Reevaluation(s) Reevaluation #1: 08/14/18 18:16 [facility] abdomen 08/13/18: Right lower quadrant of loop of fluid distended non-perstalsing loop of bowel Mildly prominent common bile duct likely post-operative in origin technically limited study Reevaluation #2: 08/14/18 19:33 Laboratory studies were reviewed and are grossly unremarkable for an acute process. Reevaluation #3: 08/14/18 21:29 CT Abdomen/Pelvis: Post-op doug/appy 13mm common duct, likely physiologic 12 mm mass right kidney, likely dense cyst, recommend MRI as outpatient. Patient was updated on all results, resting comfortably on re-examination. All questions were answered and the patient appears stable for discharge at this time. Medical Decision Making - Lab Data Result diagrams: 08/14/18 18:20 08/14/18 18:20 Disposition Disposition: Discharge Clinical Impression: Abdominal pain Qualifiers: Abdominal location: generalized Qualified Code(s): R10.84 - Generalized abdominal pain Disposition: Home, Self-Care Condition: (2) Stable Instructions: Abdominal Pain (ED) Additional Instructions: Return to ED if your symptoms worsen or if you have any concerns. Ibuprofen as directed. Follow-up with your family doctor in 3-5 days as directed. Forms: Patient Portal Access Time of Disposition: 21:31 Quality - Quality Measures Quality Measures: N/A - Blood Pressure Screening Does Patient Have Any of the Following: No Blood Pressure Classification: Hypertensive Reading Systolic Measurement: 126 Diastolic Measurement: 94 Screening for High Blood Pressure: < First Hypertensive BP, F/U Documented > [ G8950] First Hypertensive Follow-up Interventions: Referral to alternative/primary care provider.
[2018-08-14 18:32] LABS: BASO % 0.5 % (0-6); EOS % 1.7 % (0-6); GRAN % 45.4 % (47-80); HEMATOCRIT 41.4 % (35.0-47.0); HEMOGLOBIN 14.2 gm/dl (11.6-16.0); LYMPH % 46.7 % (16-45); MEAN CELL VOLUME 94.7 fl (81-97); MEAN CORPUSCULAR HEMOGLOBIN 32.5 pg (27-33); MEAN CORPUSCULAR HGB CONC 34.3 g/dl (32-36); MEAN PLATELET VOLUME 12.2 fl (7.4-10.4); MONO % 5.7 % (0-9); PLATELET COUNT 194 K/uL (130-400); RED BLOOD COUNT 4.37 M/uL (3.80-5.40); RED CELL DISTRIBUTION WIDTH 13.6 % (11.5-14.5); WHITE BLOOD COUNT W/O DIFF 6.6 K/uL (4.2-12.2)
[2018-08-14 18:33] LABS: URINE APPEARANCE CLEAR; URINE BILIRUBIN NEGATIVE (NEGATIVE); URINE BLOOD NEGATIVE (NEGATIVE); URINE COLOR YELLOW; URINE GLUCOSE (UA) NEGATIVE (NEGATIVE); URINE KETONE NEGATIVE (NEGATIVE); URINE LEUKOCYTE ESTERASE NEGATIVE (NEGATIVE); URINE NITRITE NEGATIVE (NEGATIVE); URINE PROTEIN NEGATIVE (NEGATIVE); URINE UROBILINOGEN 0.2 E.U./dL (0.20 - 1.00)
[2018-08-14 18:42] LABS: BLOOD UREA NITROGEN 8 mg/dL (6-20); CREATININE 0.8 mg/dL (0.5-0.9); EST GLOMERULAR FILTRATION RATE > 60 mL/min
[2018-08-14 18:43] LABS: LIPASE 51 U/L (13-60); TOTAL PROTEIN 7.6 g/dL (6.6-8.7)
[2018-08-14 18:45] LABS: GLUCOSE,RANDOM 82 mg/dL (74-109)
[2018-08-14] MEDS ORDERED: ONDANSETRON HCL IV 4 MG/2 ML VIAL IVP ONE (18:45)
[2018-08-14 18:47] LABS: ALT/SGPT 13 U/L (<33)
[2018-08-14 18:48] LABS: ALB/GLOB RATIO 1.5 (1.1-1.8); ALBUMIN 4.6 g/dL (4.0-5.0); ALKALINE PHOSPHATASE 74 U/L (35-104); AST/SGOT 16 U/L (10.0-35.0)
--- NOTE | 2018-08-16 20:30 | CT SCAN REPORT ---
EXAM: CT SCAN ABDOMEN/PELVIS W CONTRAST HISTORY: MID ABDOMINAL PAIN. PRIOR CHOLECYSTECTOMY, APPENDECTOMY, HYSTERECTOMY , AND HERNIA SURGERY. TECHNIQUE: Axial CT scan of the abdomen and pelvis performed utilizing both oral and IV contrast. Please see the medical record for contrast specifics. COMPARISON: Prior CT abdomen and pelvis dated 03/02/16. FINDINGS: Surgical clips in the gallbladder fossa as before consistent with the history of cholecystectomy. The appendix not identified consistent with history as well. There is a suggestion of the uterus still being present and correlation with the specifics of the prior surgical history of hysterectomy is suggested. No definite hepatic, splenic, adrenal, or pancreatic mass identified. There is a single low-attenuation mass in the mid portion of the right kidney measuring 1.2 cm in size with an indeterminate CT density of 40. There is also a single low-attenuation mass in the upper pole of the left kidney measuring 1.2 cm in size with a CT density of 20, likely a cyst. The indeterminate 1.2 cm mass in the right kidney may also be a slightly dense cyst but, if not previously documented as such, follow-up non-emergent MRI of the kidneys would be suggested to confirm. These are both very difficult to confidently identify in either kidney on the prior noncontrast CT. There is both a preaortic and retroaortic left renal vein, a developmental variant. Oral contrast given has passed throughout the small bowel into the proximal colon with no small bowel obstruction evident. The lung bases appear clear. No free intraperitoneal air or free intraperitoneal fluid evident. There is narrowing of the lumbosacral interspace consistent with degenerative disc disease. Mild facet joint arthropathy in the lower lumbar spine. Spurring at the pubic symphysis as well. There is mild dilatation of the upper common duct in the lamonte measuring about 1.3 cm in size. This may just be physiologic related to the postcholecystectomy state but correlation with serum bilirubin is suggested. The more distal common duct appears to taper gradually throughout its course down to the ampulla. IMPRESSION: 1. POST-OP CHOLECYSTECTOMY. SLIGHT PROMINENCE OF THE UPPER COMMON DUCT IS PROBABLY JUST PHYSIOLOGIC IN NATURE BUT RECOMMEND CORRELATION WITH SERUM BILIRUBIN. 2. POST-OP APPENDECTOMY. 3. HISTORY OF POST-OP HYSTERECTOMY, ALTHOUGH UTERUS MAY STILL BE PRESENT AND CORRELATION WITH THE SPECIFICS OF THE PRIOR GYNECOLOGIC SURGERY SUGGESTED. 4. APPROXIMATELY 1.2 CM INDETERMINATE MASS RIGHT KIDNEY MAY JUST BE A RELATIVELY DENSE CYST BUT, IF NOT PREVIOUSLY DOCUMENTED, FOLLOW-UP NON-EMERGENT MRI OF THE KIDNEYS WOULD BE SUGGESTED TO CONFIRM, IF NOT CONTRAINDICATED. 1.2 CM LOW-ATTENUATION MASS UPPER POLE LEFT KIDNEY IS LIKELY JUST A CYST WELL. 5. NO SMALL BOWEL OBSTRUCTION EVIDENT. NO FREE AIR OR FREE FLUID EVIDENT. 6. DEGENERATIVE CHANGE AT THE LUMBOSACRAL INTERSPACE AND AT THE PUBIC SYMPHYSIS. JOB NUMBER: [id number] [facility]
== END 2018-08-14 21:54 | disposition home or self-care (01) ==
LOC: ER 18:06
DX: R10.84 Generalized abdominal pain (principal); R11.0 Nausea
CPT/HCPCS: 99284 ×2; 96374; 83690; 85025; 80053; 81003; 74177; Q9967; J2405; J7030